=== PATIENT | male | born 1960 | race Caucasian/White ===

== ENCOUNTER → 2019-01-01 | Outpatient (CLI) | payer BC ==
[~2019-01-01] MED LIST: ASPIRIN 32325 MG/TAB PO; ASPIRIN E.C. 8181 MG PO; CELEBREX 200MG200 MG PO; CRESTOR20 MG PO; LIPITOR 40MG TA40 MG PO; MILK OF MA400 MG/5 M PO; NAPROXEN 3375 MG/TAB PO; NITROQUICK0.4 MG SL; NORCO 325 MG-7.1 TAB PO; PLAVIX 75MG TAB75 MG PO; PRINIVIL2.5 MG PO; PROTONIX 40MG T40 MG PO; SENOKOT8.6 MG PO; TOPROL XL 25MG25 MG PO; TRICOR145 MG PO; TRILIPIX 135MG PO; TYLENOL EXTRA500 M1 PO; ULTRAM 50MG TAB50 MG PO; VOLTAREN GEL 1%1 TU TP
== END ==
LOC: ZCOL.LAB 18:02
DX: L72.3 Sebaceous cyst (principal)

== ENCOUNTER → 2023-08-21 | Outpatient (CLI) | payer BC | LOC: MHCPAIN 12:38 | DX: M47.892 Other spondylosis, cervical region (principal); M54.12 Radiculopathy, cervical region; I25.10 Atherosclerotic heart disease of native coronary artery without angina pectoris; Z79.01 Long term (current) use of anticoagulants; Z95.5 Presence of coronary angioplasty implant and graft; E78.5 Hyperlipidemia, unspecified | CPT/HCPCS: G0463 ==